=== PATIENT | female | born 1995 | race Caucasian/White ===

== ENCOUNTER 2019-10-19 05:31 | Inpatient (IN) | payer OTHER ==
[2019-10-19] MEDS ORDERED: Ondansetron PF 4 MG/2 ML Vial IVP PRN ×3 (05:55→10:27)
[2019-10-19] MEDS ORDERED: Promethazine HCl 25 MG/ML VIAL IM PRN ×3 (05:55→10:27)
[2019-10-19] MEDS ORDERED: hydrALAZINE 20 MG/ML VIAL SLOW IVP PRN ×2 (05:55→10:27)
[2019-10-19] MEDS ORDERED: CEFAZOLIN 2 GM in Premix Bag 1 BAG IVPB SCH (06:00)
[2019-10-19] MEDS: Lactated Ringer's 1,000 ML IV SCH ×2 (06:06→07:30)
[2019-10-19 06:11] VITALS: BMI 39.4
[2019-10-19] MEDS ORDERED: Bicitra 30 ML UDCUP PO SCH (06:15)
[2019-10-19 06:31] LABS: Hemoglobin 12.5 g/dL (12.0-16.0); Mean Corpuscular HGB CONC 32.8 g/dL (32.0-36.0); Mean Corpuscular Hemoglobin 28.5 pg (27.0-31.0); Mean Corpuscular Volume 86.8 fL (78.0-98.0); Mean Platelet Volume 6.9 fL (7.4-10.4); Platelet Count 242 thou/uL (130-400); RBC Distribution Width 13.1 % (11.5-14.5); Red Blood Cell (RBC) Count 4.38 mill/uL (4.20-5.40); White Blood Cell (WBC) Count 11.7 thou/uL (4.8-10.8)
[2019-10-19 07:11] LABS: Syphilis Antibody Nonreactive (Nonreactive); Syphilis Antibody Index 0.04 S/CO (<1.00 Non-Reactive)
[2019-10-19 07:12] LABS: HBSAg Index 0.16 S/CO (0-0.99); Hep B Surf Ag Non-Reactive S/CO (NonReactive)
[2019-10-19] MEDS ORDERED: Oxytocin 10 UNITS/ML VIAL ONE (07:19)
[2019-10-19] MEDS ORDERED: MORPHINE 5 MG/10 ML PF VIAL ONE (07:19)
[2019-10-19] MEDS ORDERED: EPHEDRINE 25 MG/5 ML SYRINGE ONE (07:19)
[2019-10-19] MEDS ORDERED: PHENYLEPHRINE-NS 100 MCG/ML 10 ML SYRINGE ONE ×2 (07:20→07:55)
[2019-10-19] MEDS ORDERED: Ondansetron PF 4 MG/2 ML Vial ONE (07:21)
--- NOTE | 2019-10-19 07:41 | PDOC.LDHP ---
Labor and Delivery H&P Chief complaint: scheduled section HPI: 24yo at 39w by LMP here for RCS. No complaints. Current gestational age (weeks): 39 Due date: 10/25/19 Dating criteria: last menstrual period Grav: 2 Para: 1 Current complications: none Abnormal US findings: No Past Medical History: bicornuate uterus Current medications: pre-karishma vitamins Previous surgical history: low tranverse CS Allergies/Adverse Reactions: Allergies Allergy/AdvReac Type Severity Reaction Status Date / Time latex Allergy Severe Verified 10/19/19 06:02 Hives Social history: none - Physical Exam Vital signs reviewed and normal: yes General: NAD Heart: RRR Lungs: CTAB Abdomen: gravid Extremeties: no edema FHT: category 1 Evaro contractions every: none - OB Labs Blood type: O RH: positive Antibody Screen: negative HIV: negative RPR: negative HEPSAg: negative 1 hour GCT: negative GBS: negative Urine drug screen: negative Rubella: immune - Assessment L&D Assessment: scheduled repeat section - Plan Plan: admit to L&D, to OR for section, informed consent obtained, anesthesia consult for pain management
--- NOTE | 2019-10-19 07:42 | PDOC.OPDEL ---
OB Operative/Delivery Note Delivery Dr/Surgeon: Dio Assist: Stefan Pre-Delivery Diagnosis: scheduled section Procedure/Post Delivery Dx: repeat low transverse CS Weeks gestation: 39 Anesthesia: spinal - Additional Findings/Plan Placenta delivered: spontaneous findings: low transverse hysterotomy without extension, normal uterus, normal tubes, normal ovaries Post delivery plan: routine recovery
[2019-10-19] MEDS ORDERED: Naloxone HCl 0.4 mg/ml Vial IV PRN (08:47)
[2019-10-19] MEDS ORDERED: diphenhydrAMINE 50 MG/ML VIAL IVP PRN (08:47)
[2019-10-19] MEDS ORDERED: Promethazine HCl 25 MG SUPP PR PRN (08:47)
[2019-10-19] MEDS ORDERED: Naloxone HCl 0.4 mg/ml Vial IVP PRN ×2 (08:47)
[2019-10-19] MEDS ORDERED: Communication Order-Pharmacy FS SCH (09:00)
[2019-10-19] MEDS ORDERED: NS / Oxytocin 40 units/1000ml 1,000 ML ONE (10:24)
[2019-10-19] MEDS ORDERED: Simethicone Chewable 80 MG TAB PO PRN (10:27)
[2019-10-19] MEDS ORDERED: Lanolin Ointment 7 GM TUBE TOP PRN (10:27)
[2019-10-19] MEDS: Ketorolac Tromethamine 30 MG/ML VIAL IVP PRN ×3 (10:27→21:59)
[2019-10-19] MEDS ORDERED: Zolpidem Tartrate 5 MG TAB PO PRN (10:27)
[2019-10-19] MEDS ORDERED: Bisacodyl 10 MG SUPP PR PRN (10:27)
[2019-10-19] MEDS ORDERED: diphenhydrAMINE 25 MG CAP PO PRN (10:27)
[2019-10-19] MEDS ORDERED: Acetaminophen 325 MG TAB PO PRN (10:27)
[2019-10-19] MEDS ORDERED: Docusate Calcium (SURFAK) 240 MG CAP PO SCH (10:45)
[2019-10-19] MEDS ORDERED: Ferrous Sulfate 325 MG TAB PO SCH (10:45)
[2019-10-19] MEDS ORDERED: Prenatal Vitamin 1 TAB PO SCH (11:45)
--- NOTE | 2019-10-19 18:02 | OP ---
DATE OF PROCEDURE: 10/19/2019 PREOPERATIVE DIAGNOSES: 1. Intrauterine at 39 weeks and 0 days. 2. Prior section x1, declines trial of labor. 3. Bicornuate uterus. POSTOPERATIVE DIAGNOSES: 1. Intrauterine at 39 weeks and 0 days. 2. Prior section x1, declines trial of labor. 3. Bicornuate uterus. PROCEDURE PERFORMED: Repeat low-transverse section via Pfannenstiel skin incision. ANESTHESIA: Spinal. OFFSET LITHOGRAPHIC PRESS SETTER SURGEON: Tobin Aviles DO, MS ESTIMATED BLOOD LOSS: 500 mL. COMPLICATIONS: None. DRAINS: Hernandez catheter. PATHOLOGY: None. FINDINGS: Male infant, cephalic presentation, clear amniotic fluid. Apgars and weight are pending. Uterus with 2 horns and the in the right horn. Normal tubes and ovaries bilaterally. Excellent hemostasis. DESCRIPTION OF PROCEDURE: The patient was taken to the operating room where spinal anesthesia was obtained without difficulty. The patient was prepped and draped in a sterile fashion in the dorsal supine position with a leftward tilt. After ensuring adequacy of anesthesia, a Pfannenstiel skin incision was made and carried down to the underlying subcutaneous tissue with a knife. The fascia was nicked in the midline with a knife and carried laterally with the Rojas scissors. The superior aspect of the fascia was tented with 2 Silvina's and dissected off the rectus with Bovie cautery. The inferior aspect of the fascia was tented with 2 Silvina's and dissected off the rectus sharply with the Rojas's. The rectus were bluntly divided in the midline. The peritoneum was bluntly entered into and manually retracted. The Thad O retractor was placed. The vesicouterine peritoneum was incised with the Metzenbaum. The lower uterine segment was incised in a transverse fashion and extended with a Shen maneuver. The infant's head was brought to the hysterotomy and delivered atraumatically with fundal pressure. The infant's cord was clamped and infant handed to awaiting Hugo team. Cord blood was obtained. The placenta was allowed to spontaneously deliver. The uterus was exteriorized, cleared of all clots and debris and placed back into the abdomen. The hysterotomy was repaired with #1 Monocryl in a running locking fashion. Hemostasis was noted. The pelvis was irrigated and suctioned and hemostasis was again noted. The Thad O retractor was removed. The rectus muscles were examined and noted to be hemostatic. The fascia was reapproximated with 0 PDS x2 sutures with excellent reapproximation. The subcutaneous tissue was irrigated and cauterized of any bleeders and reapproximated with a 2-0 plain gut in a running fashion. The skin was closed with a 4-0 Monocryl in a subcuticular fashion. Dermabond was applied as well as a pressure dressing. The patient tolerated the procedure well. Sponge, lap, and needle counts correct x2. The patient was taken to recovery room in stable condition. The patient received Ancef 2 g prior to the procedure. Job ID: [id number]
[2019-10-19] MEDS ORDERED: HYDROcodone/Acetaminophen 5/325 mg Tablet PO PRN (21:01)
[2019-10-19] MEDS: Ferrous Sulfate 325 MG TAB PO SCH (21:45)
[2019-10-19] MEDS ORDERED: Sodium Chloride 0.9% 10 ML ONE (21:50)
[2019-10-19] MEDS: Docusate Calcium (SURFAK) 240 MG CAP PO SCH (22:00)
[2019-10-20] MEDS: Ibuprofen 800 MG TAB PO SCH ×3 (05:25→22:31)
[2019-10-20 05:36] LABS: Hemoglobin 10.7 g/dL (12.0-16.0); Mean Corpuscular Hemoglobin 28.6 pg (27.0-31.0); Mean Corpuscular Volume 86.4 fL (78.0-98.0); Mean Platelet Volume 6.7 fL (7.4-10.4); Platelet Count 239 thou/uL (130-400); RBC Distribution Width 13.4 % (11.5-14.5); Red Blood Cell (RBC) Count 3.75 mill/uL (4.20-5.40); White Blood Cell (WBC) Count 12.2 thou/uL (4.8-10.8)
[2019-10-20] MEDS: Ferrous Sulfate 325 MG TAB PO SCH (07:16)
[2019-10-20] MEDS: Prenatal Vitamin 1 TAB PO SCH (08:50)
[2019-10-20] MEDS: Docusate Calcium (SURFAK) 240 MG CAP PO SCH ×2 (08:52→20:28)
[2019-10-20] MEDS: HYDROcodone/Acetaminophen 5/325 mg Tablet PO PRN ×2 (08:55→20:28)
[2019-10-20] MEDS ORDERED: Adacel (T-DAP) 0.5 ML SYRINGE IM ONE (09:00)
--- NOTE | 2019-10-20 13:31 | PDOC.PP ---
Post Progress Note Post Day #: 1 PO intake tolerated: yes Flatus: yes Ambulation: yes Vital Signs (12 hours) Temp Pulse Resp BP Pulse Ox 10/20/19 11:40 97.8 F 68 20 107/58 L 95 10/20/19 07:56 98.0 F 89 20 111/55 L 97 10/20/19 05:23 98.7 F 87 16 114/57 L Weight Weight 252 lb - Physical Examination General: NAD Respiratory: non-labored breathing Abdominal: no distention, appropriately TTP Fundus firm & at: umb Skin: CS incision dry & intact Neurological: no gross focal deficits Psychiatric: normal affect Result Diagrams: 10/20/19 05:20 Additional Labs: Post Labs Blood Type O POSITIVE 10/19/19 06:06 Hep Bs Antigen Non-Reactive S/CO (NonReactive) 10/19/19 06:06 - Assessment/Plan POD1 s/p RCS VSSAF Doing well postop, meeting milestones. Hgb 10.7, postop anemia due to surgical blood loss. No s/sx, cont PNV Rh positive, RImm Cont postop care
[2019-10-21] MEDS: Ibuprofen 800 MG TAB PO SCH ×3 (05:29→21:20)
[2019-10-21] MEDS: HYDROcodone/Acetaminophen 5/325 mg Tablet PO PRN ×4 (05:32→21:20)
[2019-10-21] MEDS: Ferrous Sulfate 325 MG TAB PO SCH (07:07)
[2019-10-21] MEDS: Docusate Calcium (SURFAK) 240 MG CAP PO SCH ×2 (08:24→21:20)
[2019-10-21] MEDS: Prenatal Vitamin 1 TAB PO SCH (08:24)
[2019-10-22] MEDS: Ibuprofen 800 MG TAB PO SCH ×2 (05:34→14:39)
[2019-10-22] MEDS: HYDROcodone/Acetaminophen 5/325 mg Tablet PO PRN ×2 (07:38→14:40)
[2019-10-22] MEDS: Docusate Calcium (SURFAK) 240 MG CAP PO SCH (07:39)
[2019-10-22] MEDS: Prenatal Vitamin 1 TAB PO SCH (07:39)
[2019-10-22] MEDS: Ferrous Sulfate 325 MG TAB PO SCH (07:41)
[2019-10-22 09:11] VITALS: BP 133/63; TEMP 98.2
--- NOTE | 2019-10-24 06:50 | PQF ---
LYLE RODRÍGUEZ JANELLE [id number] [facility] [id number] CLINICAL DOCUMENTATION CLARIFICATION FORM: POST DISCHARGE Addendum to original discharge summary date: ____ Late entry note date: __ DATE: 10/24/2019 ATTN:Beata Wharton Please exercise your independent, professional judgment in responding to the clarification form. Clinical indicators are provided on the bottom of this form for your review Please check appropriate box(s): [ ] Acute blood loss anemia [ x ] Post-op anemia related to acute blood loss [ ] Chronic blood loss anemia [ ] Other diagnosis [ ] Unable to determine In addition, please specify: Present on Admission (POA): [ ] Yes [ ] No [ ] Unable to determine For continuity of documentation, please document condition throughout progress notes and discharge summary. Thank You. CLINICAL INDICATORS - SIGNS / SYMPTOMS / LABS PN 10/19 "postop anemia due to surgical blood loss" OP Note 10/18 "estimated blood loss:500ml" Vital Signs BP: 10/1883=763/58 10/1987=842/57 10/2029=895/59 Labs RBC: 10/18=4.38 10/19=3.75 Labs Hgb: 10/18=12.5 10/19=10.7 Labs Hct: 10/18=38.0 10/19=32.4 RISK FACTORS 39 weeks gestation-HP 10/18 24 years old female-HP 10/18 Bicornuate uterus-HP 10/18 s/p CS delivery-OP Note 10/18 TREATMENTS: Ferrous sulfate 325mg Oral-JUL 23 Laboratory monitoring-Collected 10/18 (This form is maintained as a part of the permanent medical record) 2014 [employer]. All Rights Reserved [email or web address] [phone] BARBARAD
== END 2019-10-22 16:20 | disposition home or self-care (01) | DRG 787 ==
LOC: L&D-LIB 05:31 → 3SE 11:02
PROVIDERS: ADMIT Student in an Organized Health Care Education/Training Program; ATTEND Student in an Organized Health Care Education/Training Program
PROC: 10D00Z1 Extraction of Products of Conception, Low, Open Approach (ICD-10-PCS; principal; 2019-10-19)
DX: O34.211 Maternal care for low transverse scar from previous cesarean delivery (principal); D62 Acute posthemorrhagic anemia; Z3A.39 39 weeks gestation of pregnancy; Z37.0 Single live birth; O90.81 Anemia of the puerperium; O34.03 Maternal care for unspecified congenital malformation of uterus, third trimester; Z91.040 Latex allergy status; Q51.3 Bicornate uterus
CPT/HCPCS: 36415; 51702; 85027; 86780; 86850; 86900; 86901; 87340; 87635; J0690; J1885; J2274; J2405; J2590; U0003

== ENCOUNTER 2020-06-27 08:08 | Day surgery (SDC) | payer BC ==
[2020-06-23 14:16] VITALS: BMI 38.3
[2020-06-27] MEDS ORDERED: Ketorolac Tromethamine 30 MG/ML VIAL ONE (09:11)
[2020-06-27] MEDS ORDERED: Acetaminophen 500 MG TAB ONE (09:11)
[2020-06-27] MEDS ORDERED: XYLOCAINE 2%-EPI 1:100,000 20 ML VIAL ONE (09:42)
[2020-06-27] MEDS ORDERED: Bupivacaine PF 0.5% 30 ML VIAL ONE (09:42)
[2020-06-27] MEDS ORDERED: Rocuronium Bromide 10 MG/ML (10ML VIAL) ONE (10:19)
[2020-06-27] MEDS ORDERED: Ondansetron PF 4 MG/2 ML Vial ONE (10:19)
[2020-06-27] MEDS ORDERED: Lidocaine 1% PF 5 ML VIAL ONE (10:19)
[2020-06-27] MEDS ORDERED: Dexamethasone 20 MG/5 ML VIAL ONE (10:19)
[2020-06-27] MEDS ORDERED: PROPOFOL 200 MG/20 ML VIAL ONE (10:19)
[2020-06-27] MEDS ORDERED: Fentanyl 100 MCG/2 ML VIAL ONE ×2 (10:55→12:04)
[2020-06-27] MEDS ORDERED: SUGAMMADEX SODIUM 500 MG/5 ML VIAL ONE (11:37)
[2020-06-27] MEDS ORDERED: Promethazine HCl 25 MG/ML VIAL ONE (11:55)
--- NOTE | 2020-06-27 12:06 | OP ---
DATE OF PROCEDURE: 06/27/2020 PREOPERATIVE DIAGNOSES: Chronic cholecystitis, cholelithiasis. POSTOPERATIVE DIAGNOSES: Chronic cholecystitis, cholelithiasis. PROCEDURE PERFORMED: Laparoscopic video cholecystectomy. ANESTHESIA: General, local, 0.5% Marcaine, 30 mL, mixed with 1% Xylocaine with epinephrine 20 mL. PROCEDURE PERFORMED: Laparoscopic cholecystectomy. DESCRIPTION OF PROCEDURE: The patient was taken to the operating room, where under general anesthesia, abdomen was clipped of hair, prepared with ChloraPrep and draped in routine fashion. Local anesthetic was infiltrated in the skin and subcutaneous tissue about each port site. An infraumbilical incision made, pneumoperitoneum to 15 mmHg obtained with a Veress needle, replaced with a 5 port. Laparoscope inserted. Right subxiphoid incision was made and 11 port placed. Right subcostal incision made in midclavicular, anterior axillary lines, 5 ports placed. Liver appeared to be normal. Gallbladder and fundus grasped and retracted cephalad. Infundibulum grasped and retracted laterally. Cystic artery and duct dissected free. Critical view obtained. Cystic artery and duct doubly clipped proximally, divided, and gallbladder dissected free from liver bed, obtaining good hemostasis prior to division of final peritoneal attachments. Gallbladder and contents removed, submitted to Pathology. Good hemostasis ensured. Irrigant and pneumoperitoneum evacuated. All instruments removed. All skin incisions were approximated with interrupted subdermal 4-0 Monocryl and [place] glue applied. Job ID: [id number]
[2020-06-27] MEDS ORDERED: Labetalol HCl 100 MG/20 ML VIAL ONE (12:23)
[2020-06-27] MEDS ORDERED: HYDROcodone/Acetaminophen 5/325 mg Tablet ONE (13:36)
== END 2020-06-27 14:25 | disposition home or self-care (01) ==
LOC: SDC 08:08
PROVIDERS: ATTEND Specialist
PROC: 0FT44ZZ Resection of Gallbladder, Percutaneous Endoscopic Approach (ICD-10-PCS; principal; 2020-06-27)
DX: K80.10 Calculus of gallbladder with chronic cholecystitis without obstruction (principal); Z91.040 Latex allergy status
CPT/HCPCS: 88304; J0690; J1100; J1885; J2405; J2550; J2704; J3010; S0020